=== PATIENT | female | born 1995 | race Two or more races ===

== ENCOUNTER 2019-04-01 22:17 | Emergency (ER) | payer MEDICAID ==
[~2019-04-01] VITALS: Ht 162.6 cm; Wt 58.1 kg
[2019-04-01] MEDS ORDERED: ESCI5TAB PO (22:31)
[2019-04-01] MEDS ORDERED: [UNRECOGNIZED DRUG - REMARK] (22:31)
[2019-04-01] MEDS ORDERED: TRAZ-214 PO (22:31)
[2019-04-01] MEDS ORDERED: LITH600C PO (22:31)
--- NOTE | 2019-04-01 22:38 | NUR ---
Dr. Bose at bedside for MSE.
[2019-04-01] MEDS ORDERED: DICYCLOMINE HCL LIQ 10 MG/5 ML UDC PO ONE (22:45)
[2019-04-01] MEDS ORDERED: DICYCLOMINE HCL LIQ 10 MG/5 ML UDC ONE (22:47)
--- NOTE | 2019-04-01 22:55 | NUR ---
Patient discharged to home in stable conditon. Written and verbal after care instructions given. Patient verbalizes understanding of instructions. Pt ambulated out of ER with steady gait, no acute signs of distress, VSS, all belongings taken.
[2019-04-01 22:57] VITALS: BP 130/86
== END 2019-04-01 22:57 | disposition home or self-care (01) ==
LOC: EDBD 22:19 → ER 22:19
DX: F11.23 Opioid dependence with withdrawal (principal); F14.23 Cocaine dependence with withdrawal; R10.9 Unspecified abdominal pain; F31.9 Bipolar disorder, unspecified; F17.290 Nicotine dependence, other tobacco product, uncomplicated; Z76.0 Encounter for issue of repeat prescription; Z71.6 Tobacco abuse counseling; Z59.0 Homelessness
CPT/HCPCS: A4663

== ENCOUNTER 2019-05-25 17:01 | Emergency (ER) | payer MEDICAID ==
[~2019-05-25] VITALS: Ht 162.6 cm; Wt 59.0 kg
[~2019-05-25 17:01] MED LIST: ESCI5TAB PO; LITH600C PO; TRAZ-214 PO; [UNRECOGNIZED DRUG - REMARK]
[2019-05-25] MEDS ORDERED: METOCLOPRAMIDE HCL 10 MG/2 ML VIAL IM ONE (18:00)
[2019-05-25] MEDS ORDERED: KETOROLAC TROMETHAMINE 60 MG INJ IM ONE ×2 (18:00→18:07)
[2019-05-25] MEDS ORDERED: METOCLOPRAMIDE HCL 10 MG/2 ML VIAL ONE (18:07)
--- NOTE | 2019-05-25 18:30 | NUR ---
PATIENT HERE FOR HEADACHE
[2019-05-25 19:07] LABS: *URINE HCG, QUAL NEGATIVE (NEGATIVE)
--- NOTE | 2019-05-25 19:12 | NUR ---
HAND OFF REPORT TO ALINE FRANKLIN
--- NOTE | 2019-05-25 19:15 | NUR ---
hAND OFF RECEIVED FROM OUTGOING DAY SHIFT RN Patient discharged to home in stable conditon. Written and verbal after care instructions given. Patient verbalizes understanding of instructions. AMBULATORY WITH STABLE GAIT ALL BELONGINGS WITH PT
[2019-05-25 19:33] VITALS: BP 114/62
== END 2019-05-25 19:15 | disposition home or self-care (01) ==
LOC: ER 17:01
DX: F07.81 Postconcussional syndrome (principal); F31.9 Bipolar disorder, unspecified; F17.200 Nicotine dependence, unspecified, uncomplicated; F11.10 Opioid abuse, uncomplicated; F12.10 Cannabis abuse, uncomplicated; W22.01XA Walked into wall, initial encounter; Y93.89 Activity, other specified; Y92.89 Other specified places as the place of occurrence of the external cause; Y99.8 Other external cause status
CPT/HCPCS: 70450; 84703; 96372 ×2; 99284; J1885; J2765; A4663

== ENCOUNTER 2019-06-20 02:09 | Emergency (ER) | payer MEDICAID ==
[~2019-06-20] VITALS: Ht 162.6 cm; Wt 59.0 kg
--- NOTE | 2019-06-20 02:25 | NUR ---
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
--- NOTE | 2019-06-20 02:34 | NUR ---
PT WAS LOOKING AT HER PHONE, SEATED POSITION, PT AMBULATORY W/ STABLE GAIT TOWARDS BATHROOM, ABLE TO VOID FREELY MONITORED ACCORDINGLY, BED AT LOWEST POSITION [id number] RAISED
[2019-06-20] MEDS ORDERED: HYDROCODONE/APAP 10-325 MG TABLET ONE (02:57)
--- NOTE | 2019-06-20 02:59 | NUR ---
PT ABLE TO TOLERATE PO MEDS ORDERED PT IS SMILING AND COMPLIANT, PT PAIN WENT DOWN TO 6/10 TOLERABLE TEMPORAL HEADACHE, WITH DECREASED LIGHT SENSITIVITY
[2019-06-20] MEDS ORDERED: HYDROCODONE/APAP 10-325 MG TABLET PO ONE (03:00)
--- NOTE | 2019-06-20 03:03 | NUR ---
PT IS HERE FOR MED REFILL PT HAS NO OTHER CONCERNS STATES [facility] HAS PROVIDED GREAT IMPROVEMENT Patient discharged to home in stable conditon. Written and verbal after care instructions given. Patient verbalizes understanding of instructions. AMBULATORY W/ STABLE GAIT ALL BELONGINGS W/ PT
[2019-06-20 03:05] VITALS: BP 123/97
== END 2019-06-20 03:05 | disposition home or self-care (01) ==
LOC: ER 02:10
DX: F07.81 Postconcussional syndrome (principal); F41.9 Anxiety disorder, unspecified; F41.0 Panic disorder [episodic paroxysmal anxiety]; F17.200 Nicotine dependence, unspecified, uncomplicated; F11.10 Opioid abuse, uncomplicated; F14.10 Cocaine abuse, uncomplicated; Z76.0 Encounter for issue of repeat prescription; Z79.899 Other long term (current) drug therapy
CPT/HCPCS: A4663

== ENCOUNTER 2019-11-15 03:57 | Emergency (ER) | payer MEDICAID ==
[~2019-11-15] VITALS: Ht 165.1 cm; Wt 56.7 kg
--- NOTE | 2019-11-15 04:08 | NUR ---
Dr. Yeung at bedside for MSE.
--- NOTE | 2019-11-15 04:21 | NUR ---
Pt provided urine sample, sent to lab.
[2019-11-15 04:26] LABS: *URINE HCG, QUAL NEGATIVE (NEGATIVE)
[2019-11-15] MEDS ORDERED: PANTOPRAZOLE SODIUM 40 MG VIAL ONE (04:28)
[2019-11-15] MEDS ORDERED: ONDANSETRON 4 MG/2 ML VIAL ONE (04:29)
[2019-11-15] MEDS ORDERED: PANTOPRAZOLE SODIUM IV 40 MG in IV DEXTROSE 5% 100 ML IV ONE (04:30)
[2019-11-15] MEDS ORDERED: ONDANSETRON 4 MG/2 ML VIAL IV ONE (04:30)
[2019-11-15 04:37] LABS: BASOPHILS % (AUTO) 0.4 % (0.0-2.0); CREATININE 0.8 mg/dL (0.6-1.3); EOSINOPHILS # (AUTO) 0.1 K/uL (0.0-0.7); EOSINOPHILS % (AUTO) 0.7 % (0.0-7.0); HEMATOCRIT 32.2 % (31.2-41.9); HEMOGLOBIN 10.3 g/dL (10.9-14.3); LYMPHOCYTES # (AUTO) 2.4 K/uL (20.0-40.0); LYMPHOCYTES % (AUTO) 18.4 % (20.5-51.5); MEAN CORPUSCULAR HEMOGLOBIN 23.6 uug (24.7-32.8); MEAN CORPUSCULAR HGB CONC 32 g/dL (32.3-35.6); MEAN CORPUSCULAR VOLUME 73.5 fL (75.5-95.3); MONOCYTES # (AUTO) 0.8 K/uL (2.0-10.0); MONOCYTES % (AUTO) 6.4 % (0.0-11.0); NEUTROPHILS # (AUTO) 9.6 K/uL (1.8-8.9); NEUTROPHILS % (AUTO) 74.1 % (38.5-71.5); PLATELET COUNT (AUTO) 331 K/uL (179-408); POTASSIUM 3.7 mmol/L (3.5-5.1); RED BLOOD CELL COUNT(AUTO) 4.37 MIL/uL (3.63-4.92)
[2019-11-15 04:49] LABS: BILIRUBIN,DIRECT 0.1 mg/dL (0.0-0.2); BILIRUBIN,TOTAL 0.6 mg/dL (0.2-1.0); TOTAL PROTEIN, SERUM 8.2 g/dL (6.4-8.2)
--- NOTE | 2019-11-15 05:00 | NUR ---
Pt requests to be seen for mental health evaluation. made aware.
--- NOTE | 2019-11-15 05:04 | NUR ---
Ultrasound at bedside.
[2019-11-15] MEDS ORDERED: METOCLOPRAMIDE HCL 10 MG/2 ML VIAL ONE (06:28)
[2019-11-15] MEDS ORDERED: METOCLOPRAMIDE HCL 10 MG/2 ML VIAL IV ONE (06:30)
--- NOTE | 2019-11-15 06:46 | NUR ---
Patient discharged to home in stable conditon. Written and verbal after care instructions given. Patient verbalizes understanding of instructions. Pt ambulated out of ER with steady gait, no acute signs of distress, VSS, all belongings taken, IV site discontinued.
[2019-11-15 06:47] VITALS: BP 113/75
== END 2019-11-15 06:48 | disposition home or self-care (01) ==
LOC: ER 04:02
DX: R10.13 Epigastric pain (principal); R11.10 Vomiting, unspecified; R19.7 Diarrhea, unspecified; F17.290 Nicotine dependence, other tobacco product, uncomplicated; Z79.899 Other long term (current) drug therapy
CPT/HCPCS: 36415; 76705; 80048; 80076; 83690; 84703; 85025; 96374; 96375; 99284; 99406; C9113; J2405; J2765; A4663

== ENCOUNTER 2020-01-24 17:01 | Emergency (ER) | payer MEDICAID ==
[~2020-01-24] VITALS: Ht 165.1 cm; Wt 67.1 kg
[~2020-01-24 17:01] MED LIST changes: -TRAZ-214 PO; +TRAZ-257 PO
[2020-01-24] MEDS ORDERED: OLAN7.5T3 PO (17:44)
[2020-01-24] MEDS ORDERED: IV NORMAL SALINE 1000 ML BAG IV ONE (18:00)
[2020-01-24 18:04] LABS: BASOPHILS # (AUTO) 0.1 K/uL (0.0-8.0); BASOPHILS % (AUTO) 0.7 % (0.0-2.0); EOSINOPHILS # (AUTO) 0.1 K/uL (0.0-0.7); HEMATOCRIT 33.7 % (31.2-41.9); LYMPHOCYTES # (AUTO) 1.7 K/uL (20.0-40.0); LYMPHOCYTES % (AUTO) 22.5 % (20.5-51.5); MEAN CORPUSCULAR HEMOGLOBIN 25.4 uug (24.7-32.8); MEAN CORPUSCULAR HGB CONC 33 g/dL (32.3-35.6); MEAN CORPUSCULAR VOLUME 77.9 fL (75.5-95.3); MONOCYTES # (AUTO) 0.7 K/uL (2.0-10.0); MONOCYTES % (AUTO) 9.8 % (0.0-11.0); NEUTROPHILS # (AUTO) 4.9 K/uL (1.8-8.9); PLATELET COUNT (AUTO) 263 K/uL (179-408); RED BLOOD CELL COUNT(AUTO) 4.33 MIL/uL (3.63-4.92); WHITE BLOOD COUNT (AUTO) 7.6 K/uL (3.8-11.8)
[2020-01-24 18:12] LABS: CREATININE 1.2 mg/dL (0.6-1.3); POTASSIUM 3.5 mmol/L (3.5-5.1)
--- NOTE | 2020-01-24 18:38 | NUR ---
Pt refused IV saline lock insertion ERMD aware monitored accordingly
--- NOTE | 2020-01-24 19:23 | NUR ---
Patient discharged to home in stable condition. Written and verbal after care instructions given. Patient verbalizes understanding of instructions. Stressed follow up or return to ER for worsening s/s.
[2020-01-24 19:24] VITALS: BP 135/92
[2020-01-24 19:31] LABS: *URINE HCG, QUAL NEGATIVE (NEGATIVE)
== END 2020-01-24 19:36 | disposition home or self-care (01) ==
LOC: ER 17:05
DX: R55 Syncope and collapse (principal); F19.10 Other psychoactive substance abuse, uncomplicated; R00.0 Tachycardia, unspecified; F22 Delusional disorders; F41.9 Anxiety disorder, unspecified; Z79.899 Other long term (current) drug therapy
CPT/HCPCS: 36415; 70030-TC; 84703; 85025; 93005; A4663; J7030